=== PATIENT | female | born 1990 ===

== ENCOUNTER 2016-04-26 15:25 | Outpatient (CLI) | payer BC | END 2016-04-26 15:26 | disposition home or self-care (01) | LOC: LABHHL 15:25 | PROVIDERS: ATTEND Surgery | DX: N63 Unspecified lump in breast (principal) | CPT/HCPCS: 88305 ==

== ENCOUNTER 2019-08-04 19:44 | Inpatient (IN) | payer MEDICAID ==
[2019-08-04] MEDS ORDERED: TERBUTALINE 1 MG/1 ML INJ SUB-Q PRN (21:12)
[2019-08-04] MEDS ORDERED: ePHEDrine SULFATE 50 MG/1 ML INJ IV PRN (21:12)
[2019-08-04] MEDS ORDERED: AMPICILLIN/NS 2 GM/100 ML 2 GM/100 ML BAG IV ONE (21:12)
[2019-08-04] MEDS ORDERED: LIDOCAINE (2%) 20 MG/1 ML VIAL 20 ML MDV INFILTRATI ONE (21:12)
[2019-08-04] MEDS ORDERED: MINERAL OIL 30 ML ORAL LIQD PO PRN (21:12)
[2019-08-04] MEDS ORDERED: TERBUTALINE 1 MG/1 ML INJ IVP PRN (21:12)
[2019-08-04 21:51] LABS: Hematocrit 33.8 % (30.3-42.9); Hemoglobin 11.9 gm/dl (10.1-14.3); Mean Corpuscular HGB Conc 35 % (30-34); Mean Corpuscular Volume 91 fl (79-97); Platelet Count 200 K/mm3 (140-440); Red Cell Distribution Width 14.4 % (13.2-15.2)
[2019-08-04] MEDS ORDERED: LACTATED RINGERS 1,000 ML IV SCH (22:00)
[2019-08-04] MEDS ORDERED: OXYTOCIN 20 UNIT/1000ML DRIP 20 UNITS/1,000 ML BAG IV SCH (22:00)
[2019-08-04] MEDS ORDERED: OXYTOCIN DRIP 30 UNITS/500 ML BAG IV SCH (22:00)
--- NOTE | 2019-08-04 22:17 | History and Physical Report ---
History of Present Illness Date of examination: 08/04/19 Date of admission: 08/04/2019 Chief complaint: Contractions and bloody show History of present illness: 28 year old female presents to L&D complaining of contractions today (all day). Patient denies leaking of water or vaginal bleeding. Patient reports active movement. Patient received care at [facility] and records are not availabe. labs have been drawn upon admission. Patient states her due date is 08/16/2019. She states was significant for overweight and gestational diabetes (diet controlled). Past History Past Medical History: other (overweight) Past Surgical History: other (EAB times 2) [employer] History: herpes (patient denies outbreaks or prodromal symptoms; state she has been taking Valtrex for suppression). denies: chlamydia, gonorrhea, hepatitis B, hepatitis C, HIV, syphilis, trichomonas Family/Genetic History: diabetes, heart disease Social history: lives with family, full code. denies: smoking, alcohol abuse, prescription drug abuse, IV drug use - Obstetrical History Expected Date of Delivery: 08/16/19 Actual Gestation: 38 Week(s) 2 Day(s) : 3 Para: 0 Hx # Term Pregnancies: 0 Number of Pregnancies: 0 Spontaneous Abortions: 0 Induced : 2 Number of Living Children: 0 Medications and Allergies Allergies Allergy/AdvReac Type Severity Reaction Status Date / Time No Known Allergies Allergy Unverified 08/04/19 20:17 Active Meds: Active Medications Ephedrine Sulfate (Ephedrine Sulfate) 10 mg IV Q2M PRN PRN Reason: Hypotension Oxytocin/Sodium Chloride (Pitocin/Ns 20 Unit/1000ml Drip) 20 units in 1,000 mls @ 125 mls/hr IV DIRECT LAY Oxytocin/Sodium Chloride (Pitocin/Ns 30 Unit/500ml) 30 units in 500 mls @ 1 mls/hr IV TITR LAY; Protocol Lactated Ringer's (Lactated Ringers) 1,000 mls @ 125 mls/hr IV DIRECT LAY Ampicillin Sodium (Ampicillin/Ns 1 Gm/50 Ml) 1 gm in 50 mls @ 100 mls/hr IV Q4HR LAY; Protocol Mineral Oil (Mineral Oil) 30 ml PO QHS PRN PRN Reason: Constipation Terbutaline Sulfate (Brethine) 0.25 mg SUB-Q ONCE PRN PRN Reason: Hyperstimulation/Hypertonicity Review of Systems All systems: negative (contractions) - Vital Signs Vital signs: Vital Signs Temp Pulse Resp BP Pulse Ox 98.3 F 86 16 134/84 97 08/04/19 20:01 08/04/19 20:01 08/04/19 20:01 08/04/19 20:01 08/04/19 20:01 Temp Pulse Resp BP Pulse Ox 98.3 F 83 16 134/84 97 08/04/19 20:01 08/04/19 21:25 08/04/19 20:01 08/04/19 20:06 08/04/19 21:25 - Physical Exam Abdomen: Positive: normal appearance, soft. Negative: distention, tenderness, guarding, rigidity Genitourinary (Female): Positive: normal external genitalia, normal perenium. Negative: perineal/vulvar lesions (no lesions seen on careful exam with bright light upon admission) Vagina: Positive: normal moisture Uterus: Positive: enlarged. Negative: tender, absent Extremities: Positive: normal. Negative: tenderness, edema - Obstetrical FHR: category 1 Uterine Contraction Monitor Mode: External Cervical Dilatation: 4 Cervical Effacement Percentage: 70 station: -1 Uterine Contraction Pattern: Regular Uterine Contraction Intensity: Mild Results Result Diagrams: 08/04/19 21:30 Abnormal lab results 08/04/19 Range/Units 21:30 MCHC 35 H (30-34) % All other labs normal. Assessment and Plan A: at 38 weeks, 2 days gestation. Active labor. GBS unknown. [place] patient with no records available. P: Admit. EFM. GBS prophylaxis. Draw labs. Obtain records.
[2019-08-05] MEDS: valACYclovir 500 MG TAB PO SCH ×2 (00:45→11:44)
[2019-08-05] MEDS: AMPICILLIN/NS 1 GM/50 ML 1 GM/50 ML BAG IV SCH ×3 (04:00→12:42)
--- NOTE | 2019-08-05 07:15 | Event Note ---
Date: 08/05/19 SVE at 06:25 1.
[2019-08-05] MEDS ORDERED: diphenhydrAMINE 50 MG/ML VIAL IV PRN (08:00)
[2019-08-05] MEDS ORDERED: fentaNYL-BUPIV 2 MCG/ML-0.125% 200 MCG/100 ML BAG EPIDURAL SCH (08:00)
[2019-08-05] MEDS ORDERED: NALOXONE 2 MG/2 ML INJ IV PRN (08:00)
[2019-08-05] MEDS ORDERED: NalbUPHINE 10 MG/1 ML INJ IV PRN (08:00)
[2019-08-05] MEDS ORDERED: ONDANSETRON 4 MG/2 ML INJ IV PRN (08:00)
[2019-08-05 08:10] LABS: Alanine Aminotransferase 14 units/L (7-56); Albumin 3.7 g/dL (3.9-5); BUN/Creatinine Ratio 15; Blood Urea Nitrogen 9 mg/dL (7-17); Calcium 9.5 mg/dL (8.4-10.2); Hemolysis Index 3
--- NOTE | 2019-08-05 08:42 | Anesthesia Consultation ---
Anesthesia Consult and Med Hx Date of service: 08/05/19 - Airway Anesthetic Teeth Evaluation: Good ROM Head & Neck: Adequate Mental/Hyoid Distance: Adequate Mallampati Class: Class II Intubation Access Assessment: Probably Good - Pulmonary Exam CTA: Yes - Cardiac Exam Cardiac Exam: RRR - Pre-Operative Health Status ASA Pre-Surgery Classification: ASA2 Proposed Anesthetic Plan: Epidural - Pulmonary Hx Smoking: No Hx Asthma: No COPD: No Hx Pneumonia: No Hx Sleep Apnea: No - Cardiovascular System Hx Hypertension: No - Gastrointestinal Hx Gastroesophageal Reflux Disease: No - Endocrine Hx End Stage Renal Disease: No Hx Non-Insulin Dependent Diabetes: Yes - Other Systems Hx Alcohol Use: Yes (NOT SINCE )
--- NOTE | 2019-08-05 08:44 | Progress Note ---
Labor Epidural - Labor Epidural Start Time: 08:27 Stop Time: 08:35 Performed by:: WAQAS RICO Procedure: Patient is requesting a laboring epidural for laboring pain. Patient IDed, H&P reviewed, all questions and concerns were answered, and consent was signed. Timeout was performed at bedside. Patient in sitting position. Sterile prep and drape was performed. [3] ml of 1% lidocaine skin wheal at L[3]- L [4]. 18- gauge Touhy epidural needle was advanced to loss of resistance with air technique. Negative CSF negative blood. Epidural catheter advanced to [11] centimeters. [-] Aspiration [-] test dose. Sterile dressing applied. Patient tolerated procedure.
[2019-08-05 09:47] LABS: Hepatitis C Virus Antibody Non-Reactive (NonReactive)
[2019-08-05] MEDS ORDERED: DEXMEDETOMIDINE 200 MCG/2 ML VIAL IV ONE (10:03)
--- NOTE | 2019-08-05 11:04 | Event Note ---
Date: 08/05/19 SVE 8100/0. Patient has epidural and is comfortable.
--- NOTE | 2019-08-05 13:55 | Event Note ---
Date: 08/05/19 SVE: anterior lip, +1 station.
[2019-08-05] MEDS ORDERED: LIDOCAINE (2%) 20 MG/1 ML VIAL 20 ML MDV INFILTRATI ONE ×2 (15:31→16:00)
[2019-08-05] MEDS ORDERED: MAGNESIUM HYDROXIDE (MOM) ORAL LIQD UDC PO PRN (17:28)
[2019-08-05] MEDS ORDERED: WITCH HAZEL/ GLYCERIN PAD TP PRN (17:28)
[2019-08-05] MEDS ORDERED: LANOLIN/ZINC/DIMETHICONE (LANSINOH) 7 GM TP PRN (17:28)
--- NOTE | 2019-08-05 17:31 | Procedure Note ---
OB Delivery Note - Delivery Date of Delivery: 08/05/19 Surgeon: EMERITA PYLE Estimated blood loss: 300cc - Vaginal Delivery presentation: vertex Delivery position: OA Intrapartum events: shoulder dystocia, other(please specify) (gestational diabetes, diet controlled) Delivery induction: none Delivery augmentation: pitocin Delivery monitor: external FHT, external uterine Route of delivery: Delivery placenta: spontaneous Delivery cord: 3 umbilical vessels Episiotomy: none Delivery laceration: other (2nd degree MLE with partial 3rd degree extension) Anesthesia: local, epidural Delivery comments: Spontaneous vaginal delivery at 15:15 of liveborn male infant weighing 3.689 kg over 2nd degree MLE with partial third degree extension with apgars of 8/9. Epidural anesthesia. Mild shoulder dystocia encountered at delivery resolved with McRobert's maneuver and repositioning of shoulders to oblique position. Anterior shoulder freed within 30 seconds after delivery of head. Baby placed skin to skin on mom's chest immediately after delivery. Spontaneous cry and respirations. Delayed cord clamping performed; cord double clamped, then cut by FOB. Spontaneous delivery of intact placenta and membranes by gasca mechanism at 15:22. EBL 300 cc. Pitocin to IV fluids after delivery of placenta. Fundus firm and midline. Dr. Hassan came in and repaired partial third degree extension of MLE; remainder of MLE repaired by Froilan Pyle CNM. No other lacerations noted. Vaginal sweep negative. Sponge and instrument counts correct. Mother and baby stable. Baby moving all extremities well.
[2019-08-05] MEDS: IBUPROFEN 600 MG TAB PO SCH (18:00)
[2019-08-05] MEDS: oxyCODONE /ACETAMINOPHEN 5-325MG TAB PO PRN (21:13)
[2019-08-05] MEDS: DOCUSATE SODIUM 100 MG CAP PO SCH (21:14)
[2019-08-06] MEDS: oxyCODONE /ACETAMINOPHEN 5-325MG TAB PO PRN (03:16)
[2019-08-06] MEDS: IBUPROFEN 600 MG TAB PO SCH ×3 (05:34→11:42)
[2019-08-06 05:44] LABS: Hemoglobin 8.8 gm/dl (10.1-14.3)
--- NOTE | 2019-08-06 11:23 | Post Anesthesia Evaluation ---
- Post Anesthesia Evaluation Patient Participated: Yes Airway Patent: Yes Stable Respiratory Function: Yes Nausea/Vomiting: No Temp > 96.8F: Yes Pain Manageable: Yes Adequeate Hydration: Yes Anesthesia Complications: No Block Receding Appropriately: Yes Patient on Ventilator: No
[2019-08-06] MEDS: DOCUSATE SODIUM 100 MG CAP PO SCH ×2 (11:42→22:56)
[2019-08-06] MEDS: FERROUS SULFATE 325 MG TAB PO SCH (11:42)
--- NOTE | 2019-08-06 12:13 | Progress Note ---
Assessment and Plan A: PP Day #1 Asymptomatic Anemia GDM A1 P: Follow Routine Orders Continue FeSO4 qd D/C Home today per patient request RTO in 6 Weeks Subjective - Subjective Date of service: 08/06/19 Patient reports: appetite normal, voiding normally, pain well controlled, flatus, ambulating normally : doing well Objective - Vital Signs Latest vital signs: Vital Signs Temp Pulse Resp BP Pulse Ox 08/06/19 08:32 98.0 F 87 18 115/74 98 08/06/19 06:34 16 08/06/19 05:34 18 08/06/19 03:16 18 08/06/19 02:07 98.0 F 86 18 117/74 98 08/06/19 00:00 18 08/05/19 22:13 18 08/05/19 22:11 98.3 F 95 H 16 126/77 98 08/05/19 21:13 18 08/05/19 19:00 18 08/05/19 18:26 98.2 F 87 20 123/86 96 08/05/19 17:58 96 H 131/73 08/05/19 17:42 100 H 144/69 08/05/19 17:28 87 149/68 08/05/19 17:12 87 130/87 08/05/19 16:57 76 128/81 08/05/19 16:42 86 134/77 08/05/19 16:31 89 135/72 08/05/19 16:11 88 134/86 08/05/19 16:08 99.1 F 08/05/19 15:57 97 H 136/90 08/05/19 15:24 103 H 138/66 08/05/19 15:15 89 73 L 08/05/19 15:11 120 H 99 08/05/19 15:06 107 H 100 08/05/19 15:04 63 79 L 08/05/19 15:01 109 H 100 08/05/19 14:56 109 H 98 08/05/19 14:51 114 H 99 08/05/19 14:46 102 H 98 08/05/19 14:41 108 H 100 08/05/19 14:37 124 H 91 08/05/19 14:36 98 H 99 08/05/19 14:31 105 H 99 08/05/19 14:27 104 H 90 08/05/19 14:26 95 H 98 08/05/19 14:21 89 99 08/05/19 14:16 91 H 99 08/05/19 14:11 92 H 99 08/05/19 14:06 93 H 99 08/05/19 14:01 89 99 08/05/19 13:56 97 H 100 08/05/19 13:53 98 H 133/90 08/05/19 13:51 97 H 99 08/05/19 13:36 93 H 99 08/05/19 13:31 102 H 98 08/05/19 13:26 87 100 08/05/19 13:24 88 132/77 08/05/19 13:21 91 H 98 08/05/19 13:16 91 H 99 08/05/19 13:11 86 99 08/05/19 13:06 87 100 08/05/19 13:01 92 H 99 08/05/19 12:56 95 H 99 08/05/19 12:54 89 124/78 08/05/19 12:51 92 H 98 08/05/19 12:46 97 H 99 08/05/19 12:41 91 H 98 08/05/19 12:36 86 99 08/05/19 12:31 80 100 08/05/19 12:26 82 100 08/05/19 12:24 80 121/79 08/05/19 12:22 97.4 F L 08/05/19 12:21 79 100 08/05/19 12:16 80 100 Intake and Output 08/05/19 08/06/19 08/06/19 22:59 06:59 14:59 Intake Total 360 480 240 Output Total 600 Balance 360 -120 240 Intake: Intake, Free Water 360 480 240 Output: Urine 600 Void 600 Other: Total, Output Amount 200 # Voids Void 1 2 Estimated Blood Loss 300 - Exam Breasts: Present: normal Cardiovascular: Present: Regular rate Lungs: Present: Clear to auscultation, Normal air movement Abdomen: Present: normal appearance, soft, normal bowel sounds Uterus: Present: normal, firm, fundal height below umbilicus Extremities: Present: normal - Labs Labs: Abnormal lab results 08/06/19 Range/Units 05:25 Hgb 8.8 L D (10.1-14.3) gm/dl Hct 26.0 L D (30.3-42.9) %
--- NOTE | 2019-08-06 12:15 | Discharge Summary ---
Providers - Providers Date of Admission: 08/04/19 21:13 Date of discharge: 08/06/19 Attending physician: OMERO HERMOSILLO Primary care physician: OMERO HERMOSILLO Hospitalization Reason for admission: active labor Delivery: other (shoulder dystocia) Episiotomy: other (3rd MLE) Laceration: 3rd degree Other procedures: none complications: none Discharge diagnosis: IUP at term delivered Condition at discharge: Good Disposition: DC-01 TO HOME OR SELFCARE Plan - Provider Discharge Summary Activity: routine, no sex for 6 weeks, no heavy lifting 4 weeks, no strenuous exercise Diet: routine Instructions: routine Additional instructions: [] Smoking cessation referral if applicable(refer to patient education folder for contact #) [] Refer to [facility]'s [facility] Booklet Call your doctor immediately for: * Fever > 100.5 * Heavy vaginal bleeding ( >1 pad per hour) * Severe persistent headache * Shortness of breath * Reddened, hot, painful area to leg or breast * Drainage or odor from incision. * Keep incision clean and dry at all times and follow doctor's instructions regarding bathing/showering - Follow up plan Follow up: OMERO HERMOSILLO MD [Primary Care Provider] - 6 Weeks
[2019-08-07] MEDS: IBUPROFEN 600 MG TAB PO SCH ×2 (00:28→05:54)
[2019-08-07] MEDS: oxyCODONE /ACETAMINOPHEN 5-325MG TAB PO PRN (14:30)
[2019-08-07] MEDS: FERROUS SULFATE 325 MG TAB PO SCH (15:21)
[2019-08-07] MEDS: DOCUSATE SODIUM 100 MG CAP PO SCH (15:23)
[2019-08-07 15:36] VITALS: BP 138/86
== END 2019-08-07 15:53 | disposition home or self-care (01) | DRG 775 ==
LOC: TRG 19:44 → APU 19:48 → TRG 21:13 → LD 21:13 → OB 08-05 18:43
PROVIDERS: ADMIT Obstetrics & Gynecology; ATTEND Obstetrics & Gynecology
PROC: 10E0XZZ Delivery of Products of Conception, External Approach (ICD-10-PCS; principal; 2019-08-05)
PROC: 0DQR0ZZ Repair Anal Sphincter, Open Approach (ICD-10-PCS; 2019-08-05)
PROC: 3E0R3BZ Introduction of Anesthetic Agent into Spinal Canal, Percutaneous Approach (ICD-10-PCS; 2019-08-05)
PROC: 00HU33Z Insertion of Infusion Device into Spinal Canal, Percutaneous Approach (ICD-10-PCS; 2019-08-05)
DX: O66.0 Obstructed labor due to shoulder dystocia (principal); O24.420 Gestational diabetes mellitus in childbirth, diet controlled; O90.81 Anemia of the puerperium; O70.20 Third degree perineal laceration during delivery, unspecified; D64.9 Anemia, unspecified; Z3A.38 38 weeks gestation of pregnancy; Z37.0 Single live birth; Z83.3 Family history of diabetes mellitus; Z82.49 Family history of ischemic heart disease and other diseases of the circulatory system
CPT/HCPCS: 36415; 59025; 80053; 82962; 83036; 85014; 85018; 85027; 86592; 86706; 86762; 86803; 86850; 86900; 86901; 87806; 96360; 96361; 96365; 96366; 96367; G0378; J0290; J2405; J2590; J3490; J7120